=== PATIENT | female | born 1980 | race Caucasian/White ===

== ENCOUNTER 2016-12-28 08:58 | Emergency (ER) | payer BC, MEDICAID ==
--- NOTE | 2016-12-28 12:59 | ER Document Report ---
ED General - General Chief Complaint: Weakness Stated Complaint: WEAKNESS Mode of Arrival: Ambulatory Information source: Patient Notes: This is a 36-year-old female at 32 weeks presents with a six-day history of generalized weakness and dyspnea on exertion. She states that she was seen for her regular OB appointment yesterday and relate her symptoms to her provider at [facility], and it was recommended that she come to the ER for an EKG. she was too busy yesterday afternoon to come to the ER so she decided to come this morning. She denies any chest pain. She has no pleuritic pain. She has had no cough or congestion. She denies any fevers chills or systemic symptoms. She states that she has no shortness of breath when she is at rest. However with ambulation she feels short of breath and just overall out of energy. It is also noted that she is caring for 3 children at home. She is tolerated po well. No contractions. No vaginal bleeding. She does report good movement. She has had no leakage of fluids. No dysuria. She denies any family history of coronary artery disease, congestive heart failure, early cardiac disease, or thromboembolic disease. She also denies any problems with lower extremity pain or swelling. TRAVEL OUTSIDE OF THE [place] IN LAST 30 DAYS: No - Related Data Allergies/Adverse Reactions: No Known Allergies Allergy (Verified 12/28/16 09:08) Past Medical History - General Information source: Patient - Social History Smoking Status: Never Smoker Chew tobacco use (# tins/day): No Frequency of alcohol use: None Drug Abuse: None Family History: None, Reviewed & Not Pertinent Patient has suicidal ideation: No Patient has homicidal ideation: No - Past Medical History Cardiac Medical History: Denies: Hx Coronary Artery Disease, Hx Heart Attack, Hx Hypertension Pulmonary Medical History: Denies: Hx Asthma, Hx Bronchitis, Hx COPD, Hx Pneumonia Neurological Medical History: Denies: Hx Cerebrovascular Accident, Hx Seizures Renal/ Medical History: Reports: Hx Kidney Stones. Denies: Hx Peritoneal Dialysis Musculoskeltal Medical History: Denies Hx Arthritis Skin Medical History: Reports Hx Cellulitis, Reports Hx MRSA Psychiatric Medical History: Reports: Hx Anxiety - new daughter has heart problems, Hx Depression Surgical Hx: Negative Past Surgical History: Denies: Hx Hysterectomy - Immunizations Immunizations up to date: Yes Hx Diphtheria, Pertussis, Tetanus Vaccination: Yes Review of Systems - Review of Systems Constitutional: See HPI. denies: Chills, Fever EENT: No symptoms reported Cardiovascular: See HPI. denies: Chest pain, Palpitations, Syncope, Lightheaded Respiratory: See HPI. denies: Cough, Hurts to breathe, Hemoptysis Gastrointestinal: No symptoms reported. denies: Abdominal pain Genitourinary: No symptoms reported Musculoskeletal: No symptoms reported. denies: Leg swelling Skin: No symptoms reported Neurological/Psychological: No symptoms reported Physical Exam - Vital signs Vitals: Temp Pulse Resp BP Pulse Ox 97.2 F 104 H 24 H 132/70 H 99 12/28/16 09:07 12/28/16 09:07 12/28/16 09:07 12/28/16 09:07 12/28/16 09:07 - Notes Notes: PHYSICAL EXAMINATION: GENERAL: Well-appearing, well-nourished and in no acute distress. Pleasant and conversant with no conversational dyspnea. HEAD: Atraumatic, normocephalic. EYES: Pupils equal round and reactive to light, extraocular movements intact, sclera anicteric, conjunctiva are normal. ENT: nares patent, oropharynx clear without exudates. Moist mucous membranes. NECK: Normal range of motion, supple without lymphadenopathy LUNGS: Breath sounds clear to auscultation bilaterally and equal. No wheezes rales or rhonchi. HEART: Regular rate and rhythm without murmurs ABDOMEN: Soft, gravid, nontender, normoactive bowel sounds. No guarding, no rebound. No masses appreciated. EXTREMITIES: Normal range of motion, no pitting or edema. NEUROLOGICAL: Cranial nerves grossly intact. Normal speech, normal gait. No gross focal motor or sensory deficits appreciated. PSYCH: Normal mood, normal affect. SKIN: Warm, Dry, normal turgor, no rashes or lesions noted. Course - Re-evaluation Re-evalutation: 12/28/16 14:03 Patient ambulated around the department. She did not become tachycardic, tachypnea, or hypoxic with ambulation. Her vital signs remained stable. Her exam and laboratory evaluation are very reassuring. At this time I do not see clinical evidence for PE, congestive heart failure, cardiac ischemia, or pneumonia. She will follow-up with OB as scheduled. Strict return precautions were discussed. - Vital Signs Vital signs: Temp Pulse Resp BP Pulse Ox 97.7 F 80 18 124/71 100 12/28/16 13:13 12/28/16 13:13 12/28/16 13:13 12/28/16 13:13 12/28/16 13:13 - Laboratory Result Diagrams: 12/28/16 12:49 12/28/16 12:49 Laboratory results interpreted by me: 12/28/16 12/28/16 12:49 12:49 Hgb 10.4 L Hct 31.0 L MCV 76 L MCH 25.6 L RDW 15.8 H BUN 4 L Creatinine 0.40 L Alkaline Phosphatase 135 H Creatine Kinase 29 L - EKG Interpretation by Me Additional EKG results interpreted by me: 12/28/16 13:03 EKG at 1209 demonstrates normal sinus rhythm with a rate of 81. There is no prior EKG for comparison. There are nonspecific T-wave abnormalities noted in the inferior leads with T-wave inversion in lead 3 and flattened T-wave in aVF. Intervals are normal and there is no ST segment elevation or depression. Discharge - Discharge Clinical Impression: Third trimester Dyspnea Qualifiers: Dyspnea type: unspecified Qualified Code(s): R06.00 - Dyspnea, unspecified Fatigue during Qualifiers: Trimester: third trimester Qualified Code(s): O26.813 - related exhaustion and fatigue, third trimester Condition: Stable Admitting Provider: [facility] Additional Instructions: Your exam and blood work evaluation today do not show sign of acute illness. Rest, drink plenty of fluids, and follow up with OB Saturday. Return to the emergency department for any development of worsening shortness of breath, any chest pain, any lower extremity swelling or pain, or any fevers chills.
[2016-12-28 13:03] LABS: ABSOLUTE LYMPHOCYTES (AUTO) 1.2 10^3/uL (0.5-4.7); ABSOLUTE MONOCYTES (AUTO) 0.7 10^3/uL (0.1-1.4); ABSOLUTE NEUT (AUTO) 5.6 10^3/uL (1.7-8.2); BASOPHILS % (AUTO) 0.2 % (0-2); EOSINOPHILS % (AUTO) 0.4 % (0-6); HEMOGLOBIN 10.4 g/dL (12.0-15.5); HGB HCT DIFFERENCE 0.2; LYMPHOCYTES % (AUTO) 16.2 % (13-45); MEAN CORPUSCULAR HEMOGLOBIN 25.6 pg (27.0-33.4); MEAN CORPUSCULAR HGB CONC 33.7 g/dL (32.0-36.0); MEAN CORPUSCULAR VOLUME 76 fl (80-97); MONOCYTES % (AUTO) 9.2 % (3-13); RED BLOOD COUNT 4.08 10^6/uL (3.72-5.28); RED CELL DISTRIBUTION WIDTH 15.8 % (11.5-14.0); WHITE BLOOD COUNT 7.6 10^3/uL (4.0-10.5)
[2016-12-28 13:14] VITALS: BP 124/71
[2016-12-28 13:31] LABS: ALANINE AMINOTRANSFERASE 23 U/L (9-52); ALBUMIN 3.5 g/dL (3.5-5.0); ALKALINE PHOSPHATASE 135 U/L (38-126); ANION GAP 10 (5-19); ASPARTATE AMINO TRANSFERASE 17 U/L (14-36); BILIRUBIN,DIRECT 0.2 mg/dL (0.0-0.4); BILIRUBIN,TOTAL 0.4 mg/dL (0.2-1.3); BLOOD UREA NITROGEN 4 mg/dL (7-20); CARBON DIOXIDE 23 mmol/L (22-30); CHLORIDE 104 mmol/L (98-107); CREATINE KINASE 29 U/L (30-135); GLUCOSE 75 mg/dL (75-110); POTASSIUM 3.7 mmol/L (3.6-5.0); SODIUM 137.2 mmol/L (137-145); TOTAL PROTEIN 6.8 g/dL (6.3-8.2)
[2016-12-28 13:41] LABS: CREATINE KINASE MB < 0.22 ng/mL (<4.55); TROPONIN I < 0.012 ng/mL
--- NOTE | 2016-12-28 18:29 | EKG REPORT ---
SEVERITY:- ABNORMAL ECG - SINUS RHYTHM NONSPECIFIC T ABNORMALITIES, INFERIOR LEADS : Confirmed by: Eliel Fisher MD 28-Dec-2016 18:29:03
== END 2016-12-28 14:14 | disposition home or self-care (01) ==
LOC: ER 08:58
DX: O26.93 Pregnancy related conditions, unspecified, third trimester (principal); R53.1 Weakness; R06.00 Dyspnea, unspecified; O26.813 Pregnancy related exhaustion and fatigue, third trimester; Z3A.32 32 weeks gestation of pregnancy; Z87.442 Personal history of urinary calculi; Z86.14 Personal history of Methicillin resistant Staphylococcus aureus infection
CPT/HCPCS: 36415; 80053; 82550; 82553; 84484; 85025; 93005; 93010; 99285

== ENCOUNTER 2017-02-07 15:00 | Outpatient (CLI) | payer BC, MEDICAID ==
--- NOTE | 2017-02-08 03:34 | Non Stress Test Report ---
Non Stress Test Datetime Report Generated by CPN: 02/08/2017 03:33 DEMOGRAPHIC EGA NST: 37.4 INDICATION Indication for Study: Ordered by Provider MONITORING Monitor Explained: Monitor Explained; Test Explained; Patient Verbalized Understanding Time on Monitor: 02/07/2017 15:16 Time off Monitor: 02/07/2017 15:44 NST Duration: 28 NST INTERVENTIONS NST Interventions: None Physician Notified NST: Dr. Hess BABY A: [id number] BABY A Movement : Present Contraction Frequency : none FHR Baseline : 135 Accelerations : 15X15 Decelerations : None Variability : Moderate 6-25bpm NST Review: Meets Criteria for Reactive NST NST Review and Verified By : D Bellavance RNC NST Results: Reactive NST REPORT Report Trigger: Send Report
== END 2017-02-07 15:55 | disposition home or self-care (01) ==
LOC: LC 15:00 → UNDODISIN 15:55 → LC 15:55 → EDSTATUS 03-06 11:20
PROVIDERS: ATTEND Obstetrics & Gynecology
PROC: 4A1HXCZ Monitoring of Products of Conception, Cardiac Rate, External Approach (ICD-10-PCS; principal; 2017-02-07)
DX: O47.1 False labor at or after 37 completed weeks of gestation (principal); Z3A.37 37 weeks gestation of pregnancy
CPT/HCPCS: 59025; Q0114

== ENCOUNTER 2017-02-08 03:35 | Inpatient (IN) | payer MEDICAID ==
[2017-02-08 04:06] LABS: APPEARANCE,URINE CLEAR; BILIRUBIN,URINE NEGATIVE (NEGATIVE); GLUCOSE, URINE NEGATIVE (NEGATIVE); KETONES,URINE NEGATIVE (NEGATIVE); LEUKOCYTE ESTERASE,URINE NEGATIVE (NEGATIVE); NITRITE,URINE NEGATIVE (NEGATIVE); PROTEIN,URINE NEGATIVE (NEGATIVE); URINE SPECIFIC GRAVITY 1.011; UROBILINOGEN,URINE NEGATIVE mg/dL (<2.0)
[2017-02-08 04:12] LABS: AMNISURE (ROM) POSITIVE (NEGATIVE)
[2017-02-08] MEDS ORDERED: RINGERS SOLUTION,LACTATED 1,000 ML IV PRN (04:15)
[2017-02-08 04:21] LABS: URINE BARBITURATES SCREEN NEGATIVE; URINE METHADONE SCREEN NEGATIVE; URINE OPIATES LOW NEGATIVE; URINE PHENCYCLIDINE SCREEN NEGATIVE
[2017-02-08] MEDS ORDERED: PENICILLIN G POTASSIUM 5,000,000 UNIT in DEXTROSE 5%-WATER 100 ML IV ONE (04:30)
[2017-02-08] MEDS ORDERED: MISOPROSTOL 0.2 MG TABLET ONE (04:43)
[2017-02-08] MEDS ORDERED: LIDOCAINE 1% INJ-PF (10 MG/ML) 30 ML SDV ONE (04:43)
[2017-02-08] MEDS ORDERED: OXYTOCIN/NORMAL SALINE 20 UNIT/1,000 ML RTUINJ ONE (04:43)
[2017-02-08] MEDS ORDERED: PENICILLIN G-K 5 MILLION UNIT VIAL ONE ×2 (04:46→08:31)
[2017-02-08 04:47] LABS: ABSOLUTE LYMPHOCYTES (AUTO) 1.1 10^3/uL (0.5-4.7); ABSOLUTE MONOCYTES (AUTO) 0.8 10^3/uL (0.1-1.4); ABSOLUTE NEUT (AUTO) 4.6 10^3/uL (1.7-8.2); BASOPHILS % (AUTO) 0.5 % (0-2); EOSINOPHILS % (AUTO) 0.4 % (0-6); HEMATOCRIT 36.1 % (36.0-47.0); HEMOGLOBIN 12.3 g/dL (12.0-15.5); HGB HCT DIFFERENCE 0.8; LYMPHOCYTES % (AUTO) 17.2 % (13-45); MEAN CORPUSCULAR VOLUME 80 fl (80-97); MONOCYTES % (AUTO) 11.7 % (3-13); RED BLOOD COUNT 4.54 10^6/uL (3.72-5.28); RED CELL DISTRIBUTION WIDTH 23.2 % (11.5-14.0); SEGMENTED NEUTROPHILS % (AUTO) 70.2 % (42-78); WHITE BLOOD COUNT 6.5 10^3/uL (4.0-10.5)
[2017-02-08] MEDS ORDERED: PENICILLIN G-K 5 MILLION UNIT VIAL IV SCH (07:15)
[2017-02-08] MEDS ORDERED: PENICILLIN G POTASSIUM 2,500,000 UNIT in DEXTROSE 5%-WATER 50 ML IV SCH (08:30)
[2017-02-08] MEDS ORDERED: BENZOCAINE/MENTHOL AEROSOL SPRAY 56 ML TOP PRN (08:51)
[2017-02-08] MEDS ORDERED: MAGNESIUM HYDROXIDE SUSP 30 ML UDCUP PO PRN (08:51)
[2017-02-08] MEDS ORDERED: OXYTOCIN/NORMAL SALINE 1,000 ML IV PRN (08:51)
[2017-02-08] MEDS ORDERED: ACETAMINOPHEN 650 MG SUPP.RECT PR PRN (08:51)
[2017-02-08] MEDS ORDERED: GLYCERIN/WITCH HAZEL LEAF 1 EACH MED..PAD TP PRN (08:51)
[2017-02-08] MEDS ORDERED: PROMETHAZINE HCL 25 MG TABLET PO PRN (08:51)
[2017-02-08] MEDS ORDERED: PSEUDOEPHEDRINE HCL 30 MG TABLET PO PRN (08:51)
[2017-02-08] MEDS ORDERED: MEASLES,MUMPS&RUBELLA VACC/PF 0.5 ML VIAL SUBCUT PRN (08:51)
[2017-02-08] MEDS ORDERED: DIPHENHYDRAMINE HCL 25 MG CAPSULE PO PRN (08:51)
[2017-02-08] MEDS ORDERED: NA PHOS,M-B/NA PHOS,DI-BA (ADULT) 133 ML ENEMA PR PRN (08:51)
[2017-02-08] MEDS ORDERED: DIPH/PERTUSS(ACELL)/TETANUS VAC/PF 0.5 ML SYR (>=10YO) IM PRN (08:51)
[2017-02-08] MEDS ORDERED: DIBUCAINE 1% OINTMENT 28 GM TP PRN (08:51)
[2017-02-08] MEDS ORDERED: MISOPROSTOL 0.2 MG TABLET PR ONE (08:51)
[2017-02-08] MEDS ORDERED: PROMETHAZINE HCL INJ 25 MG/1 ML VIAL IV PRN (08:51)
[2017-02-08] MEDS ORDERED: PROMETHAZINE HCL 25 MG SUPP.RECT PR PRN (08:51)
[2017-02-08 09:08] LABS: ARTERIAL BLOOD BASE EXCESS -0.4 mmol/L; ARTERIAL BLOOD O2 SATURATION 56.1 % (94-98)
[2017-02-08] MEDS ORDERED: IBUPROFEN 800 MG TABLET ONE (10:44)
[2017-02-08] MEDS: IBUPROFEN 800 MG TABLET PO SCH ×2 (10:44→21:53)
--- NOTE | 2017-02-08 12:17 | Delivery Summary ---
Del Sum A-C Datetime Report Generated by CPN: 02/08/2017 12:17 DELIVERY PERSONNEL DELIVERY PERSONNEL: [phone];[id number] Delivery Doctor:: Melly Spaulding CNM Nurse Medical Record Technician Certified:: Melly Spaulding CNM Labor and Delivery Nurse:: Eva Poole RNcrown ironer operator Nurse:: TOYA Farley Evaluation Advisor/[employer] POLICE: [facility] Evaluation Advisor/[employer]: Georgia Lee CNA II MATERNAL INFORMATION Delivery Anesthesia: None Medications After Delivery: Pitocin Drip 20 Units/1000ml NSS; Cytotec 600mcg Per Rectum/Vagina Meds After Delivery Comment: Pitocin 20 units in 1 L NS bolusing per order Estimated Blood Loss (ml): 300 Maternal Complications: None Provider Comments: viable male from OA to MIC over intact perineum, baby placed on mothers abd, loose nuchal cord x 1, easily reduced, spont delivery of grossly nl intact placenta, 3 vc, ebl = 300cc cord blood and cord gas to lab cytotec 600mcg via rectum, FFFM, Pitocin infusing, GBS + x 1 dose, baby and mom remains in recovery in stable condition LABOR SUMMARY EDC: 02/24/2017 00:00 No. Babies in Womb: 1 Attempted: No Labor Anesthesia: None LABOR INFORMATION Reason for Induction: Not Applicable Onset of Labor: 02/08/2017 04:45 Complete Dilatation: 02/08/2017 08:19 Cervical Ripening Agents: Cytotec @ 600 Oxytocin: N/A Group B Beta Strep: positive Antibiotics # of Doses: 2 Antibiotics Time of Last Dose: 0832 Name of Antibiotic Given: PCN Steroids Given: None MEMBRANES Membranes Rupture Method: Spontaneous Rupture of Membranes: 02/08/2017 02:20 Length of Rupture (hr): 6.25 Amniotic Fluid Color: Clear Amniotic Fluid Amount: Small Amniotic Fluid Odor: Normal STAGES OF LABOR Stage 1 hr: 3 Stage 1 min: 34 Stage 2 hr: 0 Stage 2 min: 16 Stage 3 hr: 0 Stage 3 min: 5 Total Time in Labor hr: 3 Total Time in Labor min: 55 VAGINAL DELIVERY Episiotomy: None Laceration Extension: N/A Laceration Type: None Laceration Repair: Not Applicable Sponge Count Correct: N/A Sharps Count Correct: N/A CSECTION DELIVERY Primary Indication: N/A Secondary Indication: N/A CSection Incidence: N/A Labor: N/A Elective: N/A CSection Incision: N/A BABY A INFORMATION Infant Delivery Date/Time: 02/08/2017 08:35 Method of Delivery: Vaginal Born in Route : No : N/A Forceps: N/A Vacuum Extraction: N/A Shoulder Dystocia : No PRESENTATION/POSITION BABY A Presentation: Cephalic Cephalic Presentation: Vertex Vertex Position: Left Occipital Anterior Breech Presentation: N/A PLACENTA INFORMATION BABY A Placenta Delivery Time : 02/08/2017 08:40 Placenta Method of Delivery: Spontaneous Placenta Status: Delivered SCORES BABY A Heart Rate 1 min: >100 bpm Resp Effort 1 min: Good Cry Reflex Irritability 1 min: Cough or Sneeze or Pulls Away Muscle Tone 1 min: Active Motion Color 1 min: Body [place], Extremities Blue Resuscitation Effort 1 min: Tactile Stimulation SCORE 1 MIN: 9 Heart Rate 5 min: >100 bpm Resp Effort 5 min: Good Cry Reflex Irritability 5 min: Cough or Sneeze or Pulls Away Muscle Tone 5 min: Active Motion Color 5 min: Body [place], Extremities Blue Resuscitation Effort 5 min: Tactile Stimulation SCORE 5 MIN: 9 INFORMATION BABY A Gestational Age at Delivery: 37.5 Gestational Status: Early Term- 37- 38.6 Weeks Outcome : Liveborn Condition : Stable Infant Sex: Male IDENTIFICATION BABY A Infant Verification Date/Time: 02/08/2017 08:49 ID Band Number: [id number] Mother's Name Verified: Yes Infant RN Verifying : Dave PooleRN. Per RN WEIGHT/LENGTH BABY A Infant Birthweight (gm): 3720 Weight (lb): 8 Infant Weight (oz): 3 Length (in): 22.00 Infant Length (cm): 55.88 CORD INFORMATION BABY A No. Cord Vessels: 3 Nuchal Cord : Around Neck x1, Loose Cord Blood Taken: Yes-For Storage (Mom's Blood type +) Suction: Mouth; Nose ASSESSMENT BABY A Infant Complications: None Physical Findings at Delivery: Within Normal Limits Infant Respirations: Appears Normal Skin to Skin: Yes Skin to Skin Time (min): 30 Care By: Antonio Gallo, RNC Transferred To: Remains with Mother BABY B INFORMATION : N/A
[2017-02-08] MEDS: DOCUSATE SODIUM 100 MG CAPSULE PO SCH ×2 (13:41→18:27)
[2017-02-08] MEDS: FAMOTIDINE 20 MG TABLET PO SCH ×2 (13:41→21:54)
[2017-02-08] MEDS: FERROUS SULFATE 325 MG TABLET PO SCH ×2 (13:41→18:27)
[2017-02-08] MEDS: SENNOSIDES/DOCUSATE 8.6-50 MG 1 EACH TABLET PO SCH (13:41)
[2017-02-08] MEDS: PRENATAL VITAMIN W-O CA NO5/FE FUMARATE/FA CAPSULE PO SCH (13:41)
[2017-02-08] MEDS ORDERED: ACETAMINOPHEN WITH CODEINE #3 TABLET PO PRN ×2 (19:57→19:58)
[2017-02-09] MEDS: IBUPROFEN 800 MG TABLET PO SCH ×3 (05:28→21:21)
[2017-02-09 07:42] LABS: HEMATOCRIT 33.3 % (36.0-47.0); HEMOGLOBIN 11.2 g/dL (12.0-15.5); HGB HCT DIFFERENCE 0.3; MEAN CORPUSCULAR HEMOGLOBIN 27.2 pg (27.0-33.4); MEAN CORPUSCULAR HGB CONC 33.6 g/dL (32.0-36.0); MEAN CORPUSCULAR VOLUME 81 fl (80-97); RED BLOOD COUNT 4.12 10^6/uL (3.72-5.28); RED CELL DISTRIBUTION WIDTH 23.5 % (11.5-14.0); WHITE BLOOD COUNT 8.2 10^3/uL (4.0-10.5)
--- NOTE | 2017-02-09 08:42 | PDOC PROGRESS REPORT ---
Subjective-OB Subjective: Post Delivery Day: 36 year old. Denies any needs at this time Doing well, no c/o, eating well, voiding, scant lochia Physical Exam (OB) Vital Signs: Temp Pulse Resp BP Pulse Ox 97.6 F 79 18 125/66 99 02/09/17 08:04 02/09/17 08:04 02/09/17 08:04 02/09/17 08:04 02/09/17 08:04 Intake & Output 02/08/17 02/09/17 02/10/17 06:59 06:59 06:59 Weight 37.5 kg - PIH/Pre-Eclampsia Headache: Absent Epigastric Pain: No Visual Changes: No - Lochia Lochia Amount: Scant < 10 ml Lochia Color: Rubra/Red - Abdomen Description: Soft Hernia Present: No Fundal Description: Firm Fundal Height: u/u - u/2 Objective-Diagnostic Laboratory: 02/09/17 07:16 02/08/17 02/09/17 08:35 07:16 WBC 8.2 RBC 4.12 Hgb 11.2 L Hct 33.3 L MCV 81 MCH 27.2 MCHC 33.6 RDW 23.5 H Plt Count 185 Carbonic Acid 1.22 HCO3/H2CO3 Ratio 20:1 ABG pH 7.40 ABG pCO2 40.6 ABG pO2 29.6 L* ABG HCO3 24.4 ABG O2 Saturation 56.1 L ABG Base Excess -0.4 FiO2 CORD BLOOD Assessment and Plan(PN) - Assessment and Plan (1) Depression Qualifiers: Depression Type: unspecified Qualified Code(s): F32.9 - Major depressive disorder, single episode, unspecified Is this a current diagnosis for this admission?: Yes (2) Anxiety Is this a current diagnosis for this admission?: Yes (3) Vaginal delivery Is this a current diagnosis for this admission?: Yes - Time Spent with Patient Time with patient: Less than 15 minutes Medications reviewed and adjusted accordingly: Yes - Disposition Anticipated Discharge: Home Within: within 24 hours
[2017-02-09] MEDS: PRENATAL VITAMIN W-O CA NO5/FE FUMARATE/FA CAPSULE PO SCH (10:58)
[2017-02-09] MEDS: SENNOSIDES/DOCUSATE 8.6-50 MG 1 EACH TABLET PO SCH (10:58)
[2017-02-09] MEDS: FAMOTIDINE 20 MG TABLET PO SCH ×2 (10:59→21:21)
[2017-02-09] MEDS: FERROUS SULFATE 325 MG TABLET PO SCH ×2 (10:59→17:30)
[2017-02-09] MEDS: DOCUSATE SODIUM 100 MG CAPSULE PO SCH ×2 (10:59→17:30)
[2017-02-10] MEDS: IBUPROFEN 800 MG TABLET PO SCH (05:22)
--- NOTE | 2017-02-10 09:16 | PDOC PROGRESS REPORT ---
Subjective-OB Subjective: Post Delivery Day: 36 year old. Denies any needs at this time Doing well, ready to go home, wants BTL,did not sign Title xx papers, scant bleeding, breast and bottle Physical Exam (OB) Vital Signs: Temp Pulse Resp BP Pulse Ox 97.7 F 79 17 116/63 99 02/10/17 07:55 02/10/17 07:55 02/10/17 07:55 02/10/17 07:55 02/10/17 07:55 - PIH/Pre-Eclampsia DTR's: 2 + Clonus: Negative Headache: Absent Epigastric Pain: No Visual Changes: No - Lochia Lochia Amount: Small 10-25 ml Lochia Color: Rubra/Red - Abdomen Description: Soft, Round Hernia Present: No Fundal Description: Firm, Midline Fundal Height: u/u - u/2 Objective-Diagnostic Laboratory: 02/09/17 07:16 Assessment and Plan(PN) - Assessment and Plan (1) Depression Qualifiers: Depression Type: unspecified Qualified Code(s): F32.9 - Major depressive disorder, single episode, unspecified Is this a current diagnosis for this admission?: Yes (2) Anxiety Is this a current diagnosis for this admission?: Yes (3) Vaginal delivery Is this a current diagnosis for this admission?: Yes - Time Spent with Patient Time with patient: Less than 15 minutes Medications reviewed and adjusted accordingly: Yes - Disposition Anticipated Discharge: Home Within: Other - home today, denies anxiety/depression
--- NOTE | 2017-02-10 09:21 | PDOC DISCHARGE SUMMARY ---
Final Diagnosis Discharge Date: 02/10/17 - Final Diagnosis (1) Depression Is this a current diagnosis for this admission?: Yes (2) Anxiety Is this a current diagnosis for this admission?: Yes (3) Vaginal delivery Is this a current diagnosis for this admission?: Yes Discharge Data - Discharge Medication Home Medications: Buspirone HCl [Buspar 10 mg Tablet] 10 mg PO BID 02/07/17 Ferrous Sulfate [Iron] 1 tab PO BID 02/07/17 Valacyclovir HCl [Valtrex 500 mg Tablet] 500 mg PO DAILY 02/07/17 Prenat Vit Comb.10/Iron/FA/Dha [Vitafol-Ob+Dha Combo Pack] 1 each PO DAILY 02/08 Ranitidine HCl [Zantac 150 mg Tablet] 150 mg PO BID 02/08/17 Gestational Age: 37.5 Reason(s) for Admission: Onset of Labor, Medical Complications, Group B Strep Positive Admission Note: depression, anxiety, Hx HSV Procedures: NST, Ultrasound Intrapartum Procedure(s): Spontaneous Vaginal Delivery - [place] Data Baby 1 Male at 1 minute: 9 at 5 minutes: 9 Weight: 3.714 kg Home with Mother: Yes Complications: No - Diagnosis Test Laboratory: Temp Pulse Resp BP Pulse Ox 97.7 F 79 17 116/63 99 02/10/17 07:55 02/10/17 07:55 02/10/17 07:55 02/10/17 07:55 02/10/17 07:55 02/08/17 02/08/17 02/09/17 03:47 04:28 07:16 RBC 4.54 4.12 Hgb 12.3 11.2 L Hct 36.1 33.3 L Urine Opiates Screen NEGATIVE - Discharge information/Instructions Discharge Activity: Activity As Tolerated, No Lifting/Push/Pulling, Pelvic Rest Discharge Diet: As Tolerated, Regular Disposition: HOME, SELF-CARE Follow up with: [facility] in: 4, Weeks
[2017-02-10] MEDS: FAMOTIDINE 20 MG TABLET PO SCH (09:22)
[2017-02-10] MEDS: PRENATAL VITAMIN W-O CA NO5/FE FUMARATE/FA CAPSULE PO SCH (09:22)
[2017-02-10] MEDS: FERROUS SULFATE 325 MG TABLET PO SCH (09:22)
[2017-02-10] MEDS: DOCUSATE SODIUM 100 MG CAPSULE PO SCH (09:22)
[2017-02-10] MEDS: SENNOSIDES/DOCUSATE 8.6-50 MG 1 EACH TABLET PO SCH (09:22)
[2017-02-10 09:48] VITALS: BP 110/63
== END 2017-02-10 12:03 | disposition home or self-care (01) | DRG 774 ==
LOC: LC 03:35 → LR 04:18 → 2S 11:33
PROVIDERS: ADMIT Obstetrics & Gynecology; ATTEND Obstetrics & Gynecology
PROC: 10E0XZZ Delivery of Products of Conception, External Approach (ICD-10-PCS; principal; 2017-02-08)
PROC: 4A1HXCZ Monitoring of Products of Conception, Cardiac Rate, External Approach (ICD-10-PCS; 2017-02-08)
PROC: 3E0234Z Introduction of Serum, Toxoid and Vaccine into Muscle, Percutaneous Approach (ICD-10-PCS; 2017-02-10)
DX: O99.824 Streptococcus B carrier state complicating childbirth (principal); O98.52 Other viral diseases complicating childbirth; O99.344 Other mental disorders complicating childbirth; F41.9 Anxiety disorder, unspecified; F32.9 Major depressive disorder, single episode, unspecified; O69.81X0 Labor and delivery complicated by cord around neck, without compression, not applicable or unspecified; B00.9 Herpesviral infection, unspecified; Z79.899 Other long term (current) drug therapy; Z3A.37 37 weeks gestation of pregnancy; Z37.0 Single live birth; Z23 Encounter for immunization
CPT/HCPCS: 36415; 80307; 81005; 82803; 84112; 85025; 85027; 86592; 86850; 86900; 86901; 88307; 90715; J2540; J2590; J3490

== ENCOUNTER 2017-08-22 05:14 | Day surgery (SDC) | payer MEDICAID ==
[2017-08-20 11:27] LABS: HEMATOCRIT 39.1 % (36.0-47.0); HEMOGLOBIN 13.5 g/dL (12.0-15.5); HGB HCT DIFFERENCE 1.4; MEAN CORPUSCULAR HEMOGLOBIN 28.4 pg (27.0-33.4); MEAN CORPUSCULAR HGB CONC 34.6 g/dL (32.0-36.0); MEAN CORPUSCULAR VOLUME 82 fl (80-97); RED BLOOD COUNT 4.76 10^6/uL (3.72-5.28); RED CELL DISTRIBUTION WIDTH 13.9 % (11.5-14.0); WHITE BLOOD COUNT 5.8 10^3/uL (4.0-10.5)
[2017-08-20 11:34] LABS: APPEARANCE,URINE SLIGHTLY-CLOUDY; BILIRUBIN,URINE NEGATIVE (NEGATIVE); GLUCOSE, URINE NEGATIVE (NEGATIVE); KETONES,URINE NEGATIVE (NEGATIVE); LEUKOCYTE ESTERASE,URINE TRACE (NEGATIVE); NITRITE,URINE NEGATIVE (NEGATIVE); PROTEIN,URINE 30 mg/dL (NEGATIVE); URINE SPECIFIC GRAVITY 1.026; UROBILINOGEN,URINE NEGATIVE mg/dL (<2.0)
[2017-08-20 11:56] LABS: ANION GAP 15 (5-19); BLOOD UREA NITROGEN 12 mg/dL (7-20); CALCIUM 8.8 mg/dL (8.4-10.2); CARBON DIOXIDE 25 mmol/L (22-30); CHLORIDE 104 mmol/L (98-107); CREATININE RESULT 0.66 mg/dL (0.52-1.25); GLUCOSE 112 mg/dL (75-110); POTASSIUM 3.8 mmol/L (3.6-5.0); SODIUM 144.4 mmol/L (137-145)
[~2017-08-22 05:14] MED LIST: CEFAZOLIN 1 GM/D5W RTU 1 GM/50 ML RTUPB IV PRN; LACTATED RINGERS 1000 ML IV PRN; LIDOCAINE 0.5% INJ-PF (5 MG/ML) 50 ML SDV SUBCUT PRN
[2017-08-22] MEDS ORDERED: ONDANSETRON HCL INJ/PF 4 MG/2 ML SDV ONE (06:56)
[2017-08-22] MEDS ORDERED: PROPOFOL INJ 200 MG/20 ML VIAL IV ONE (06:56)
[2017-08-22] MEDS ORDERED: FENTANYL CITRATE INJ/PF 100 MCG/2 ML AMPUL ONE (06:56)
[2017-08-22] MEDS ORDERED: MORPHINE SULFATE 10 MG/ML INJ ONE (06:56)
[2017-08-22] MEDS ORDERED: MIDAZOLAM 2 MG/2 ML INJ ONE (06:56)
[2017-08-22] MEDS ORDERED: DEXAMETHASONE SOD PHOSPHATE INJ 4 MG/1 ML VIAL ONE (06:56)
[2017-08-22] MEDS ORDERED: IBUPROFEN INJ 800 MG/8 ML VIAL IV ONE (07:28)
[2017-08-22] MEDS ORDERED: IBUPROFEN 800 MG TABLET PO PRN (08:14)
[2017-08-22] MEDS: FENTANYL CITRATE INJ/PF 100 MCG/2 ML AMPUL ONE ×2 (08:14→08:19)
[2017-08-22] MEDS ORDERED: OXYCODONE-ACETAMINOPHEN 5-325 MG TABLET PO PRN ×3 (08:15→08:16)
[2017-08-22] MEDS ORDERED: MORPHINE SULFATE 10 MG/ML INJ IM PRN ×3 (08:16→08:17)
[2017-08-22] MEDS ORDERED: DIPHENHYDRAMINE HCL 50 MG/ML VIAL IV PRN (08:16)
[2017-08-22] MEDS ORDERED: MORPHINE SULFATE 10 MG/ML INJ IV PRN (08:16)
[2017-08-22] MEDS ORDERED: PROMETHAZINE HCL INJ 25 MG/1 ML VIAL IV PRN ×2 (08:16)
[2017-08-22] MEDS ORDERED: FENTANYL CITRATE INJ/PF 100 MCG/2 ML AMPUL IV PRN ×3 (08:16)
[2017-08-22] MEDS ORDERED: MEPERIDINE HCL/PF INJ 25 MG/1 ML DISP.SYRIN IV PRN (08:16)
[2017-08-22] MEDS ORDERED: PROMETHAZINE HCL INJ 25 MG/1 ML VIAL IM PRN (08:17)
--- NOTE | 2017-08-22 09:03 | OPERATIVE REPORT E ---
Operative Report NAME: ELSIE MULLINS : 1980 AGE: 37Y DATE OF SURGERY: 08/22/2017 ROOM: PREOPERATIVE DIAGNOSIS: Desires permanent sterilization. POSTOPERATIVE DIAGNOSIS: Desires permanent sterilization. PROCEDURE: Laparoscopic Filshie clip application x2. SURGEON: GABI MATHEW M.D. ESTIMATED BLOOD LOSS: 5 mL. ANESTHESIA: General endotracheal. FINDINGS: A normal pelvis, normal gallbladder. Appendix not visualized. INDICATIONS FOR PROCEDURE: Patient desired permanent sterilization, understanding the risk of failure and subsequent *------* approximately 1 and 150 every 10 years, understanding the risk of bleeding, infection, anesthesia, and damage to organs and tissues. DESCRIPTION OF PROCEDURE: The patient was taken to the operating room and placed in the modified lithotomy position and adequate anesthesia ascertained. Prepped and draped in the usual manner for a Filshie clip application. Hulka tenaculum placed on the anterior lip of the cervix. Bladder was drained under sterile technique. After surgical timeout performed, EUA performed, and through an infraumbilical incision, *------* fat and fascia, the peritoneum was entered without difficulty and an origin cannula was placed and gas instilled. Under direct visualization, a 5 mm port was placed in the midline approximately 3 fingerbreadths above the symphysis pubis and probe was used to delineate the normal anatomy. Filshie clip applicator was placed. One clip was placed approximately 1 cm from the uterine fundus on the antimesenteric border of the tube without adequate new tube noted within the ends of each clip. The clip noted to extend over the entire width of the tube. At completion of this, instruments were removed, gas was removed, the fascial incision of the umbilicus was closed with a 0 Vicryl stitch and subcuticular stitch of 3-0 Chromic catgut was used on the subcuticular spaces and with incision. Instrument was removed from the cervix. Patient was taken to recovery room in stable condition. DICTATING PHYSICIAN: GABI MATHEW M.D. [id number] PHY#: [id number] ID: [id number] JOB#: [id number] ACCT: [id number] cc:GABI MATHEW M.D. >
[2017-08-22 09:51] VITALS: BP 122/74
[2017-08-22] MEDS ORDERED: BUSPIRONE HCL 10 MG TABLET PO SCH (10:00)
[2017-08-22] MEDS ORDERED: SUCCINYLCHOLINE CHLORIDE INJ 200 MG/10 ML VIAL ONE (10:46)
== END 2017-08-22 09:55 | disposition home or self-care (01) ==
LOC: OROUT 05:14
PROVIDERS: ATTEND Specialist
PROC: 0UL74CZ Occlusion of Bilateral Fallopian Tubes with Extraluminal Device, Percutaneous Endoscopic Approach (ICD-10-PCS; principal; 2017-08-22 07:15)
DX: Z30.2 Encounter for sterilization (principal); D64.9 Anemia, unspecified
CPT/HCPCS: 86900; 86901; 36415; 86850; 85027; 81025; 80048; 81001; 58671; J2250; J0690; J1100; J3010; J3490; J2270; J2550; J0330; J2405; J2704; J1741; 851